=== PATIENT | male | born 1990 | race Caucasian/White ===

== ENCOUNTER 2021-07-06 17:41 | Emergency (ER) | payer OTHER ==
[2021-07-06] MEDS ORDERED: Ondansetron ODT 4 MG TAB ONE (19:16)
[2021-07-06] MEDS ORDERED: Acetaminophen 500 MG TAB ONE (19:16)
[2021-07-06] MEDS ORDERED: Ketorolac Tromethamine 30 MG/ML VIAL ONE (19:54)
== END 2021-07-06 21:10 | disposition home or self-care (01) ==
LOC: CSHERS 17:41
DX: S06.0X0A Concussion without loss of consciousness, initial encounter (principal); R11.0 Nausea; F17.290 Nicotine dependence, other tobacco product, uncomplicated; V63.5XXA Driver of heavy transport vehicle injured in collision with car, pick-up truck or van in traffic accident, initial encounter
CPT/HCPCS: 70450; 96372; J1885; Q0162

== ENCOUNTER 2021-07-09 16:14 | Emergency (ER) | payer OTHER, SELFPAY ==
[2021-07-09] MEDS ORDERED: Ondansetron ODT 4 MG TAB ONE (17:15)
[2021-07-09] MEDS ORDERED: Ketorolac Tromethamine 30 MG/ML VIAL ONE (17:16)
== END 2021-07-09 17:53 | disposition home or self-care (01) ==
LOC: CSHERS 16:14
DX: S06.0X0A Concussion without loss of consciousness, initial encounter (principal); M54.50 Low back pain, unspecified; F17.290 Nicotine dependence, other tobacco product, uncomplicated; V89.2XXA Person injured in unspecified motor-vehicle accident, traffic, initial encounter
CPT/HCPCS: 96372; 99283; J1885; Q0162